=== PATIENT | female | born 1985 | race Two or more races ===

== ENCOUNTER 2017-04-20 06:14 | Emergency (ER) | payer MEDICAID ==
[~2017-04-20] VITALS: Ht 154.9 cm; Wt 51.7 kg
[2017-04-20 07:12] LABS: Basophils # (auto) 0 uL; Basophils % (auto) 0.3 % (0.0-2.0); Eosinophils # (auto) 0.1 uL; Hematocrit 44.3 % (36.0-46.0); Hemoglobin 14.9 g/dL (12.2-16.2); Lymphocytes # (auto) 1.5 uL; Lymphocytes % (auto) 16.7 % (10.0-50.0); Mean Corpuscular Hemoglobin 29.4 pg (28.0-32.0); Mean Corpuscular Hgb Conc. 33.6 g/dL (32.0-36.0); Mean Corpuscular Volume 87.3 fL (80.0-100.0); Monocytes # (auto) 0.8 uL; Monocytes % (auto) 9.3 % (0.0-12.0); Neutrophils # (auto) 6.5 uL; Neutrophils % (auto) 72.7 % (37.0-80.0); Platelet Count (auto) 336 10^3/uL (140-450); Red Blood Cells 5.07 10^6/uL (4.0-5.20); Red Cell Distribution Width 14.6 % (11.8-14.3)
[2017-04-20 07:23] LABS: Urine Bacteria NONE SEEN /hpf (None Seen); Urine Blood 2+ /uL (Negative); Urine Specific Gravity 1.006 (1.001-1.035); Urine WBC 2 /hpf (0 - 5)
[2017-04-20 07:34] LABS: Albumin 3.6 g/dL (3.4-5.0); BUN/Creatinine Ratio 9.3; Calcium 8.4 mg/dL (8.5-10.1); Magnesium 2.4 mg/dL (1.6-2.6)
[2017-04-20 07:37] LABS: Bilirubin, Total 0.2 mg/dL (0.2-1.0); Total Protein 8.2 g/dL (6.4-8.2)
[2017-04-20 11:32] VITALS: BP 138/95
[2017-04-20] MEDS ORDERED: POTASSIUM CHL 10% (20 MEQ/15ML) 15ml ORAL SOLN PO ONE (12:00)
== END 2017-04-20 13:03 | disposition home or self-care (01) ==
LOC: ER 06:20
DX: R07.9 Chest pain, unspecified (principal); R06.02 Shortness of breath
CPT/HCPCS: 36415; 71020; 80053; 81001; 81025; 83735; 84484; 85025; 93005; 94761